=== PATIENT | female | born 1955 | race Caucasian/White ===

== ENCOUNTER 2017-11-15 06:34 | Inpatient (IN) ==
[2017-11-08 17:58] LABS: Appearance,Urine CLEAR; Bilirubin,Urine NEG (NEG); Color,Urine YELLOW; Glucose,Urine (UA) NEGATIVE (NEG); Leukocyte Esterase,Urine NEG /uL (NEG); Nitrate,Urine NEG (NEG); Protein,Urine NEG (NEG); Specific Gravity,Urine 1.015 (1.000-1.035); Urine Blood NEG mg/dL (<0.03); Urobilinogen,Urine NEG (NEG)
[2017-11-08 18:28] LABS: Blood Urea Nitrogen 19 mg/dl (8-23)
[2017-11-08 18:35] LABS: Basophils # (Auto) 0 K/mcL (0.0-0.3); Basophils % (Auto) 0.6 % (0.0-2.0); Eosinophils # (Auto) 0.1 K/mcL (0.0-0.7); Eosinophils % (Auto) 1.7 % (0.0-7.0); Lymphocytes # (Auto) 2.1 K/mcL (1.5-4.8); Lymphocytes % (Auto) 32.7 % (15.5-49.0); Mean Cell Volume 90.4 fL (80.0-100.0); Mean Corpuscular HGB Conc 34.2 g/dL (31.0-36.0); Mean Corpuscular Hemoglobin 30.9 pg (26.0-34.0); Monocytes # (Auto) 0.7 K/mcL (0.1-0.9); Platelet Count 232 K/mcL (140-440); RBC 3.78 M/mcL (4.00-5.20); Red Cell Distribution Width 14.1 % (11.5-14.5)
[~2017-11-15 06:34] MED LIST: CELECOXIB 200 MG CAPSULE PO SCH; KETOROLAC 30 MG, ROPIVACAINE HCL/PF 49.5 ML, EPINEPHrine 0.5 MG, 0.9 % SODIUM CHLORIDE ... IJ SCH; PREGABALIN 75 MG CAPSULE PO SCH; ceFAZolin 1 GM VIAL IV SCH; oxyCODONE 10 MG TAB.ER.12H PO SCH
[2017-11-15] MEDS ORDERED: DEXAMETHASONE 10 MG/ML VIAL IV ONE (09:25)
[2017-11-15] MEDS ORDERED: LIDOCAINE HCL/PF 100 MG/5 ML SYRINGE IV ONE (09:25)
[2017-11-15] MEDS ORDERED: MIDAZOLAM 5 MG/5 ML VIAL IV ONE (09:25)
[2017-11-15] MEDS ORDERED: PROPOFOL 200 MG/20 ML VIAL IV ONE (09:25)
[2017-11-15] MEDS ORDERED: ONDANSETRON 4 MG/2 ML VIAL IV ONE (09:25)
[2017-11-15] MEDS ORDERED: TRANEXAMIC ACID 1,000 MG/10 ML VIAL IV ONE ×2 (09:25→10:56)
[2017-11-15] MEDS ORDERED: BUPIVACAINE PF 0.5% 30 ML VIAL IJ ONE (09:25)
[2017-11-15] MEDS ORDERED: ACETAMINOPHEN 1,000 MG/100 ML BOTTLE IV ONE (10:07)
[2017-11-15] MEDS ORDERED: diphenhydrAMINE 50 MG/ML VIAL IV PRN (10:07)
[2017-11-15] MEDS ORDERED: LACTATED RINGERS 250 ML IV PRN (10:07)
[2017-11-15] MEDS ORDERED: PROMETHAZINE 25 MG/ML VIAL IM PRN (10:07)
[2017-11-15] MEDS ORDERED: NALOXONE HCL 0.4 MG/ML VIAL IV PRN (10:07)
[2017-11-15] MEDS ORDERED: METHOCARBAMOL 1,000 MG/10 ML VIAL IV PRN (10:07)
[2017-11-15] MEDS ORDERED: BENZOCAINE/MENTHOL 1 LOZENGE PO PRN ×2 (10:07→10:56)
[2017-11-15] MEDS ORDERED: fentaNYL 100 MCG/2 ML VIAL IV PRN (10:07)
[2017-11-15] MEDS ORDERED: PROMETHAZINE 25 MG/ML VIAL IV PRN (10:07)
[2017-11-15] MEDS ORDERED: ePHEDrine 50 MG/ML AMPUL IV PRN (10:07)
[2017-11-15] MEDS ORDERED: IPRATROPIUM/ALBUTEROL 3 ML AMPUL.NEB NEB PRN (10:07)
[2017-11-15] MEDS ORDERED: FLUMAZENIL 0.1 MG/ML ML IV PRN (10:07)
[2017-11-15] MEDS ORDERED: MEPERIDINE 50 MG/ML SYRINGE IM PRN (10:07)
[2017-11-15] MEDS ORDERED: ONDANSETRON 4 MG/2 ML VIAL IV PRN ×2 (10:07→10:56)
[2017-11-15] MEDS ORDERED: LACTATED RINGERS 1,000 ML IV SCH (10:15)
--- NOTE | 2017-11-15 10:55 | Brief Operative Note ---
Date of procedure: 11/15/17 Pre-op diagnosis: Left knee osteoarthritis Post-op diagnosis: same Procedure: Left robotic assisted total knee arthroplasty Grafts/Implants: Yes ([place] Triathlon CR 2 femur, 2 tibia, 11mm insert, 33 patella) Anesthesia: spinal, GLMA Findings: severe arthritis Complications: none Surgeon: Stuart Parham Watershed Program Manager: Tristen Oh Estimated blood loss (cc): 30 Specimens Removed/Pathology: none sent Condition: stable Disposition: PACU
[2017-11-15] MEDS ORDERED: FLEETS ADULT ENEMA PR PRN (10:56)
[2017-11-15] MEDS ORDERED: HYDROmorphone 2 MG/ML SYRINGE IV PRN (10:56)
[2017-11-15] MEDS ORDERED: MAGNESIUM HYDROXIDE 30 ML ORAL.SUSP PO PRN (10:56)
[2017-11-15] MEDS ORDERED: BISACODYL 10 MG SUPP.RECT PR PRN (10:56)
[2017-11-15] MEDS ORDERED: POLYETHYLENE GLYCOL 3350 17 GM PACKET PO PRN ×2 (10:56→11:00)
[2017-11-15] MEDS ORDERED: ACETAMINOPHEN PO PRN (11:00)
[2017-11-15] MEDS ORDERED: ASPIRIN PO PRN (11:00)
[2017-11-15] MEDS ORDERED: CAFFEINE PO PRN (11:00)
[2017-11-15] MEDS: MEPERIDINE 25 MG/ML SYRINGE IV PRN ×2 (11:45→11:50)
--- NOTE | 2017-11-15 12:41 | XRay Report ---
CLINICAL INFORMATION: Post-op total knee COMPARISON: None. FINDINGS: Total knee prostheses is anatomically aligned. No osseous abnormality. Periarticular soft tissue swelling and gas seen as expected IMPRESSION: Negative Interpreted and Authenticated by: Zachariah Vidales 11/15/17
[2017-11-15] MEDS: KETOROLAC 30 MG/ML VIAL IV SCH ×2 (13:17→18:08)
[2017-11-15] MEDS: 0.9 % SODIUM CHLORIDE 10 ML SYRINGE IV SCH ×2 (14:33→21:39)
[2017-11-15] MEDS: 0.9 % SODIUM CHLORIDE 1,000 ML IV SCH ×2 (14:34→19:20)
--- NOTE | 2017-11-15 15:02 | Discharge Summary ---
Ortho Discharge - TKA - Patient Instructions Diet: Regular Diet Activity: activity as tolerated, weight bearing as tolerated Total Knee Protocol: For Total Knee: Start ROM JERRY with stationary bike or rocking chair. Work on gaining full extension of knee. Posterior dislocation precautions provided. Hip abductor strengthening and gait training instructions provided. Apply Cryocuff as instructed. Dressing Care: May shower in 2 days, Aquacel Ag - leave on for 5 days - Follow Up Plan Follow Up Appointments: Dung Montoya PA-C [Physician Kiss Mixer] - Disposition: Home, Self-Care Prognosis: Good Rehab Potential: Good - Orders For Discharge Additional Discharge Orders: Physical Therapy at Discharge - TKA Location: Determined By Patient Toilet Riser Discharge Order Location: Determined By Patient Walker Location: Determined By Patient
[2017-11-15] MEDS: HYDROcodone/APAP 10/325MG TABLET PO PRN ×2 (16:56→21:11)
[2017-11-15] MEDS: ceFAZolin 1 GM VIAL IV SCH (16:56)
[2017-11-15] MEDS ORDERED: NORTRIPTYLINE 10 MG CAPSULE PO SCH (21:00)
[2017-11-15] MEDS ORDERED: SENNOSIDES 1 TABLET PO SCH (21:00)
[2017-11-15] MEDS: DOCUSATE SODIUM 100 MG CAPSULE PO SCH (21:11)
[2017-11-15] MEDS: ASPIRIN 325 MG ENTERIC COATED TABLET PO SCH (21:11)
[2017-11-15] MEDS: [UNRECOGNIZED DRUG - OTHER] PO SCH (21:15)
[2017-11-16] MEDS: ceFAZolin 1 GM VIAL IV SCH (00:41)
[2017-11-16] MEDS: KETOROLAC 30 MG/ML VIAL IV SCH ×2 (00:41→05:28)
[2017-11-16] MEDS: HYDROcodone/APAP 10/325MG TABLET PO PRN ×2 (02:02→08:33)
[2017-11-16] MEDS: 0.9 % SODIUM CHLORIDE 1,000 ML IV SCH (02:43)
[2017-11-16] MEDS: 0.9 % SODIUM CHLORIDE 10 ML SYRINGE IV SCH (05:28)
[2017-11-16] MEDS ORDERED: OMEPRAZOLE 20 MG CAPSULE PO SCH (07:30)
[2017-11-16] MEDS ORDERED: oxyCODONE/APAP 5/325MG TABLET PO PRN (08:49)
--- NOTE | 2017-11-16 08:51 | Operative Note ---
DATE OF OPERATION: 11/15/2017 PREOPERATIVE DIAGNOSIS: Left knee severe osteoarthritis. POSTOPERATIVE DIAGNOSIS: Left knee severe osteoarthritis. PROCEDURE PERFORMED: Left robotic-assisted total knee arthroplasty placing a Daniel Triathlon size 2 cruciate retaining femoral component, a size 2 tibial baseplate, an 11 mm X3 tibial insert with a 33 mm patellar button. SURGEON: Stuart Parham M.D. PENCIL INSPECTOR: Tristen Oh PA-C. ANESTHESIA: Spinal plus general. DRAINS: None. SPECIMENS: Bone cuts, which were discarded. BLOOD LOSS: Less than 30 mL. POSTOPERATIVE CONDITION: Stable. INDICATIONS FOR SURGERY: This is a 61-year-old female who has had longstanding worsening knee pain. Radiographs showed cisc-lp-liic osteoarthritis. Her symptoms were no longer controlled with oral anti-inflammatories and intra-articular corticosteroid injections. FINDINGS AT SURGERY: She had complete cartilage loss. Post implantation showed good overall limb alignment, stability and patellar tracking. PROCEDURE IN DETAIL: The patient had been seen preoperatively and informed consent had been obtained after discussion of risks and benefits of surgery. Risks including, but not limited to, bleeding, possibly requiring transfusion; infection, possibly requiring implant removal and prolonged IV antibiotics; injury to nerves, blood vessels, and other surrounding structures; anesthetic risks; incomplete or no resolution of symptoms; stiffness; swelling; pain; instability; clunking; DVT and pulmonary embolus risks; and the possibility of needing further revision surgery. She understood these risks and wished to proceed. Correct operative site was marked and then patient was given spinal anesthesia. She was then taken to the operating room and LMA general given. The left lower extremity was carefully prepped and draped in normal sterile fashion, and a time-out was performed verifying patient name, operative site, and plan. Esmarch was used to exsanguinate the extremity and tourniquet was inflated. A midline incision was made with a scalpel through skin and subcutaneous tissue. Hemostasis was obtained with Bovie cautery. Irrisept was irrigated and then a medial parapatellar arthrotomy made. Subperiosteal exposure was done of the anterior medial tibia and distal anterior cortex of the femur and anterior horns of the menisci were removed, as well as the ACL was transected. The retropatellar fat pad was removed. We made two stab incisions over the femur and two over the tibia and placed bicortical pins, two in each, and then connected the arrays. We then placed a femoral and tibial check point. We then did our hip center of rotation check as well as a green probe to the medial and lateral malleolus. We also did our double checks of our checkpoints with the green probe. We then used the blue probe to do our cartilage mapping. Once this was completed, we removed osteophytes and then checked our flexion and extension gaps. She was quite tight medially and quite loose laterally. We went ahead and balanced her to 17 mm on the medial side in flexion and extension. This required 2 degrees of varus in the tibia and 3 degrees of varus in the femur. We then made sure our patellar tracking looked good and then went ahead and entered this into the robot. We then used the robotic arm to make our bone cuts. We also marked after this our tibial rotation with Bovie. We then placed our tibial baseplate trial and prepared with the boss reamer and keel punch. Keeled baseplate was placed and then a curved osteotome was used to remove posterior osteophytes. Femoral trial was impacted and pinned and then peg holes drilled. A 9 insert was placed. The knee was taken into extension. Patella was measured a 21 pre-resection. A free hand resection remained 12 mm left. This sized to a 33, which was drilled and then trialed. Patella tracked well. Definitive implants were opened while Irrisept was irrigated into the joint. After a minute, we pulse lavaged. Antibiotic cement was being mixed. We then cleaned and dried the cancellous bone surface with the CO2 gun and then cemented the tibia followed by the femur. Excess cement was removed and a 9 insert trial placed. The knee was taken into extension, and the patellar button was cemented. The joint was filled with Irrisept while cement hardened, and we injected pain cocktail into the pericapsular and subcutaneous tissues. After cement had fully hardened, we did check and realize we had some hyperextension and some laxity, so we upsized to an 11 insert. This had better stability without the hyperextension, so we went ahead and opened the 11 insert. We injected the pain cocktail in the posterior capsule before impacting the definitive insert, and we also irrigated Irrisept prior to impacting it. We then pulse lavaged with saline and removed checkpoints. The pins were also removed. A #2 FiberWire interrupted mwljsr-ht-keucup were used around the superior quadrant of the patella. A #1 Vicryl inferior odwowm-bz-dkedsl were used around the inferior quadrant, running #1 Vicryl for patellar tendon and quad tendon. Final Irrisept was done and after a minute final pulse lavage, and then 2-0 Monocryl for subcutaneous and flip for skin. Xeroform and sterile dressing was applied and tourniquet was released. The patient was awakened, extubated, and transferred to recovery in stable condition. [email or web address] Job ID: [id number] Doc ID: [id number] Stuart Parham MD
[2017-11-16] MEDS ORDERED: CYANOCOBALAMIN (VITAMIN B-12) 500 MCG TABLET PO SCH (09:00)
[2017-11-16] MEDS ORDERED: ASCORBIC ACID 500 MG TABLET PO SCH (09:00)
[2017-11-16] MEDS ORDERED: VITAMIN D3 1,000 UNIT TABLET PO SCH (09:00)
[2017-11-16] MEDS ORDERED: PYRIDOXINE 100 MG TABLET PO SCH (09:00)
[2017-11-16] MEDS ORDERED: oxyCODONE HCL 5 MG TABLET PO PRN (09:06)
[2017-11-16] MEDS: DOCUSATE SODIUM 100 MG CAPSULE PO SCH (09:27)
[2017-11-16] MEDS: ASPIRIN 325 MG ENTERIC COATED TABLET PO SCH (09:28)
[2017-11-16] MEDS: [UNRECOGNIZED DRUG - OTHER] PO SCH (09:30)
== END 2017-11-16 11:15 | disposition home or self-care (01) | DRG 470 ==
LOC: MEDSUR 06:34
PROVIDERS: ADMIT Orthopaedic Surgery; ATTEND Orthopaedic Surgery

== ENCOUNTER 2019-10-22 06:09 | Inpatient (IN) ==
[2019-10-17 19:04] LABS: Appearance,Urine HAZY; Bacteria,Urine 0 /hpf (0); Bilirubin,Urine NEG (NEG); Color,Urine YELLOW; Culture Indicated,Urine YES; Glucose,Urine (UA) NEGATIVE (NEG); Ketones,Urine NEG (NEG); Leukocyte Esterase,Urine 500 /uL (NEG); Mucus,Urine FEW /hpf (0); Nitrate,Urine NEG (NEG); Protein,Urine NEG (NEG); Urine Blood NEG mg/dL (<0.03); Urine RBC 7 /hpf (0-1); Urine Squamous Epithelial Cell 0 /hpf (0-4); Urine Transitional Epi Cells < 1 /hpf (0-2); Urine WBC 167 /hpf (0-4); Urobilinogen,Urine NEG (NEG)
[2019-10-17 19:48] LABS: Basophils # (Auto) 0 K/mcL (0.0-0.3); Basophils % (Auto) 0.8 % (0.0-2.0); Eosinophils # (Auto) 0.1 K/mcL (0.0-0.7); Eosinophils % (Auto) 1.4 % (0.0-7.0); Granulocytes % (Auto) 45.4 % (38.0-78.0); Hematocrit 36.6 % (36.0-48.0); Hemoglobin 12.3 g/dL (12.0-15.0); Lymphocytes # (Auto) 1.5 K/mcL (1.5-4.8); Lymphocytes % (Auto) 36.8 % (15.5-49.0); Mean Cell Volume 94.3 fL (80.0-100.0); Mean Corpuscular HGB Conc 33.6 g/dL (31.0-36.0); Mean Platelet Volume 9.5 fL (7.4-10.4); Monocytes # (Auto) 0.6 K/mcL (0.1-0.9); Monocytes % (Auto) 15.6 % (1.0-12.0); Platelet Count 202 K/mcL (140-440); RBC 3.88 M/mcL (4.00-5.20); WBC 4.1 K/mcL (4.5-11.0)
[2019-10-17 20:14] LABS: Blood Urea Nitrogen 15 mg/dl (8-23); Calcium 9.3 mg/dl (8.6-10.4); Carbon Dioxide 26 mmol/L (22-30); Chloride 105 mmol/L (96-108); Glomerular Filtration Rate 92; Glucose 96 mg/dL (70-105)
[2019-10-17 20:31] LABS: Estimated Average Glucose(eAG) 111 mg/dL; Hemoglobin A1C 5.5 % HGB (4.0-6.0)
[~2019-10-22 06:09] MED LIST changes: +0.9 % SODIUM CHLORIDE 9 ML, KETOROLAC 30 MG, ROPIVACAINE HCL/PF 49.5 ML, EPINEPHrine 0.... IJ SCH; +IPRATROPIUM/ALBUTEROL 3 ML AMPUL.NEB NEB PRN; -KETOROLAC 30 MG, ROPIVACAINE HCL/PF 49.5 ML, EPINEPHrine 0.5 MG, 0.9 % SODIUM CHLORIDE ... IJ SCH; +SCOPOLAMINE 1 PATCH PATCH TOPICAL PRN; -ceFAZolin 1 GM VIAL IV SCH; +ceFAZolin 2 GM in DEXTROSE 5% IN WATER 50 ML IV SCH
[2019-10-22] MEDS ORDERED: SCOPOLAMINE 1 PATCH PATCH TOPICAL PRN (06:30)
[2019-10-22] MEDS ORDERED: IPRATROPIUM/ALBUTEROL 3 ML AMPUL.NEB NEB PRN ×2 (06:30→10:45)
[2019-10-22] MEDS ORDERED: ePHEDrine 50 MG/ML AMPUL IV ONE (09:30)
[2019-10-22] MEDS ORDERED: LIDOCAINE HCL/PF 100 MG/5 ML SYRINGE IV ONE (09:30)
[2019-10-22] MEDS ORDERED: TRANEXAMIC ACID 1,000 MG/10 ML VIAL IV ONE (09:30)
[2019-10-22] MEDS ORDERED: PROPOFOL 200 MG/20 ML VIAL IV ONE (09:30)
[2019-10-22] MEDS ORDERED: ROPIVACAINE HCL/PF 20 ML VIAL IJ ONE (09:30)
[2019-10-22] MEDS ORDERED: DEXAMETHASONE 10 MG/ML VIAL IV ONE (09:30)
[2019-10-22] MEDS ORDERED: ONDANSETRON 4 MG/2 ML VIAL IV ONE (09:30)
[2019-10-22] MEDS ORDERED: KETAMINE 100 MG/ML ML IV ONE (09:30)
[2019-10-22] MEDS ORDERED: NALOXONE HCL 0.4 MG/ML VIAL IV PRN (10:45)
[2019-10-22] MEDS ORDERED: fentaNYL 100 MCG/2 ML VIAL IV PRN (10:45)
[2019-10-22] MEDS ORDERED: ONDANSETRON 4 MG/2 ML VIAL IV PRN ×2 (10:45→10:54)
[2019-10-22] MEDS ORDERED: diphenhydrAMINE 50 MG/ML VIAL IV PRN (10:45)
[2019-10-22] MEDS ORDERED: LACTATED RINGERS 1,000 ML IV SCH (10:45)
[2019-10-22] MEDS ORDERED: ACETAMINOPHEN 800 MG/80 ML BOTTLE IV ONE (10:45)
[2019-10-22] MEDS ORDERED: MEPERIDINE 25 MG/ML SYRINGE IV PRN (10:45)
[2019-10-22] MEDS ORDERED: PROMETHAZINE 25 MG/ML VIAL IV PRN (10:45)
[2019-10-22] MEDS ORDERED: FLUMAZENIL 0.1 MG/ML ML IV PRN (10:45)
[2019-10-22] MEDS ORDERED: LACTATED RINGERS 250 ML IV PRN (10:45)
[2019-10-22] MEDS ORDERED: HYDROmorphone 2 MG/ML VIAL IV PRN (10:54)
[2019-10-22] MEDS ORDERED: POLYETHYLENE GLYCOL 3350 17 GM PACKET PO PRN (10:54)
[2019-10-22] MEDS ORDERED: MAGNESIUM HYDROXIDE 30 ML ORAL.SUSP PO PRN (10:54)
[2019-10-22] MEDS ORDERED: BISACODYL 10 MG SUPP.RECT PR PRN (10:54)
[2019-10-22] MEDS ORDERED: FLEETS ADULT ENEMA PR PRN (10:54)
[2019-10-22] MEDS ORDERED: BENZOCAINE/MENTHOL 1 LOZENGE PO PRN (10:54)
[2019-10-22] MEDS ORDERED: TRANEXAMIC ACID 1,000 MG/10 ML VIAL IV SCH (10:54)
--- NOTE | 2019-10-22 10:54 | Brief Operative Note ---
Date of procedure: 10/22/19 Pre-op diagnosis: Right knee DJD Post-op diagnosis: same Procedure: Right robotic assisted total knee arthroplasty Grafts/Implants: Yes (Daniel Triathlon CR 1 femur, 2 tibia, 9mm CS insert, 31 patella) Anesthesia: spinal, GLMA Findings: MFC chondral loss Complications: none Surgeon: Stuart Parham Care Transition Coordinator: Dung Montoya Estimated blood loss (cc): 30 Specimens Removed/Pathology: none sent Condition: stable Disposition: PACU
[2019-10-22] MEDS ORDERED: traMADol 50 MG TABLET PO PRN (10:56)
[2019-10-22] MEDS: 0.9 % SODIUM CHLORIDE 1,000 ML IV SCH (12:05)
[2019-10-22] MEDS: KETOROLAC 15 MG/ML VIAL IV SCH ×2 (12:05→17:34)
--- NOTE | 2019-10-22 12:15 | XRay Report ---
CLINICAL INFORMATION: Post-op total knee. COMPARISON: None. FINDINGS: Total knee prostheses is anatomically aligned. No osseous abnormality. Periarticular gas and soft tissue swelling seen as expected IMPRESSION: Negative Interpreted and Authenticated by: Zachariah Vidales 10/22/19
--- NOTE | 2019-10-22 12:23 | Operative Note ---
DATE OF OPERATION: 10/22/2019 PREOPERATIVE DIAGNOSIS: Right knee degenerative joint disease. POSTOPERATIVE DIAGNOSIS: Right knee degenerative joint disease. PROCEDURE PERFORMED: Right robotic-assisted total knee arthroplasty placing a Daniel Triathlon size 1 cruciate retaining femoral component, size 2 tibial baseplate, a 9 mm X3 cruciate substituting insert with a 31 mm patellar button. SURGEON: Stuart Parham M.D. [employer] WEB DEVELOPER: Armani Montoya PA-C. The PA's assistance was required for the safe and efficient completion of the entire case. This provider's expertise and technical skill were required throughout the case. The PA assisted with preoperative coordination, intraoperative retraction, wound closure, dressing and splint application, as well as postoperative documentation and care coordination. ANESTHESIA: Spinal plus general. DRAINS: None. SPECIMENS: Bone cuts which were discarded. BLOOD LOSS: 50 mL. COMPLICATIONS: None. POSTOPERATIVE CONDITION: Stable. INDICATIONS FOR SURGERY: This is a 63-year-old female who had right-sided knee pain. Radiographs showed some arthrosis. However, MRI showed more significant arthritis. She had had a steroid injection with only short-term relief. She had a history of a left total knee arthroplasty after an unsuccessful knee arthroscopy. FINDINGS AT SURGERY: She did have full-thickness cartilage loss off the medial femoral condyle. Post implantation showed good limb alignment, patellar tracking, and joint stability. PROCEDURE IN DETAIL: The patient had been seen preoperatively. Informed consent had been obtained after discussion of risks and benefits of surgery. Risks including, but not limited to, bleeding, possibly requiring transfusion; infection, possibly requiring implant removal and prolonged IV antibiotics; injury to nerves, blood vessels, and other surrounding structures; anesthetic risks; incomplete or no resolution of symptoms; swelling; stiffness; pain; instability; DVT and pulmonary embolus risks; and the possibility of needing further revision joint surgery. Patient understood and wished to proceed. Correct operative site was marked in preoperative holding, and patient was taken to the operating room and general anesthesia was induced. The right lower extremity was then prepped and draped in normal sterile fashion, and a timeout was performed verifying patient name, operative site, and plan. Ioban was placed over all skin surfaces and an Esmarch was used to exsanguinate the extremity, and tourniquet was inflated. A midline incision was made with a scalpel through skin and subcutaneous tissue, then IrriSept was irrigated and a medial parapatellar arthrotomy was made, and then a subperiosteal exposure was done of the anterior medial tibia. Anterior horns of the menisci were removed, as well as retropatellar fat pad. ACL was transected. We then did a resection of the patella freehand, premeasuring thickness and then placing a cut protector after. We then placed our femoral and tibial checkpoints, and then a scalpel was used to make two stab incisions over the femur and two over the tibia and bicortical pins placed. The arrays were connected. The green probe was used to identify medial and lateral malleoli and double-checks were made with the green probe of the femoral and tibial check points. Blue probe was then used to do our mapping. A rongeur was used to remove osteophytes. We then used the spoons to check our flexion-extension gaps and made adjustments to get as close to 17 mm gaps on all four numbers as possible. Once this was completed, we then used the robotic arm to make our bone cuts. The tibia was prepared with the boss reamer and keel punch and externally rotated as bone coverage would allow. A keeled tibial trial was placed, and the femur was elevated. Curved osteotome and curet were used to remove posterior osteophytes. Femoral trial was then impacted and pinned into place. This was placed flush along the lateral cortex of the femur and then peg holes were drilled. A 9 insert trial was placed and then the knee was taken into extension. We then prepared the patella medializing maximally and sized this to a 31 patella. We then checked the patellar tracking and it was stable. We then removed trial implants. Definitive implants were opened while the joint was irrigated with IrriSept. After waiting a minute, we pulse lavaged with saline. Antibiotic cement was mixed and then the cancellous bone surfaces were dried with the CO2 gun. We then cemented the tibia, followed by the femur. Excess cement was removed, and the trial insert was placed, and the knee was taken into extension. The patella was then cemented. After excess cement was removed, we filled the joint with IrriSept. The tibial and femoral check points were removed. The extension was checked and then we removed our arrays and our pins. We injected pain cocktail in the pericapsular and subcutaneous tissues. Once cement had fully hardened, we flexed the knee up. We removed the insert trial, injected pain cocktail in the posteromedial capsule. We then opened a 9 mm X3 CS insert, and this was carefully impacted and verified to be fully seated. The knee was then placed in extension and filled with IrriSept. After a minute it was copiously pulse lavaged with saline. We then flexed the knee to 45 degrees of flexion. A #2 FiberWire vjqbdo-be-cussq was used around the superior quadrant of the patella, #1 Vicryl kwypzj-vk-hnwqdp around the inferior quadrant. Running #1 Vicryl was used for patellar tendon and quad tendon. Final IrriSept irrigation was done, after a minute final pulse lavage, and then 2-0 Monocryl was used for subcutaneous and flip for skin. Xeroform and sterile dressing were applied. Tourniquet was released. The patient was awakened, extubated, and transferred to recovery in stable condition. BJB:[email or web address] Job ID: [id number] Doc ID: [id number] Stuart Parham MD
[2019-10-22] MEDS: oxyCODONE/APAP 5/325MG TABLET PO PRN ×3 (13:25→22:56)
[2019-10-22] MEDS: 0.9 % SODIUM CHLORIDE 10 ML SYRINGE IV SCH ×2 (13:26→22:00)
[2019-10-22] MEDS: ceFAZolin 1 GM VIAL IV SCH (17:35)
[2019-10-22] MEDS: ASPIRIN 81 MG TAB.CHEW PO SCH (20:41)
[2019-10-22] MEDS: DOCUSATE SODIUM 100 MG CAPSULE PO SCH (20:41)
[2019-10-22] MEDS: [UNRECOGNIZED DRUG - OTHER] PO SCH (20:43)
[2019-10-22] MEDS: FOLIC AC PO SCH (20:43)
[2019-10-22] MEDS: VIT B12 PO SCH (20:43)
[2019-10-22] MEDS ORDERED: SENNOSIDES 1 TABLET PO SCH (21:00)
[2019-10-22] MEDS ORDERED: FLUoxetine HCL 20 MG CAPSULE PO SCH (21:00)
[2019-10-23] MEDS: ceFAZolin 1 GM VIAL IV SCH (00:08)
[2019-10-23] MEDS: KETOROLAC 15 MG/ML VIAL IV SCH ×2 (00:08→06:01)
[2019-10-23] MEDS: 0.9 % SODIUM CHLORIDE 1,000 ML IV SCH (00:28)
[2019-10-23] MEDS: oxyCODONE/APAP 5/325MG TABLET PO PRN ×3 (04:18→10:25)
[2019-10-23] MEDS: 0.9 % SODIUM CHLORIDE 10 ML SYRINGE IV SCH (06:01)
--- NOTE | 2019-10-23 06:55 | Discharge Summary ---
Providers - Providers Patient information: Note initiated : 10/23/19 at 6:52 am Service Date, if different from initiated Date: [] Patient: Lia Pickens 63 y/o F admitted on 10/22/19 for Right Robotic Total Knee Arthroplasty. Chief Complaint: [] Discharge date: 10/23/19 Hospitalization Hospital Course: Pt was admitted for a R TKA. Pt admitted on the day of procedure. Pt was transferred to the floor for IV pain meds, IV abx, and PT. Pt discharged to home. Will take ASA for DVT prophylaxis. Will attend out-pt PT. Discharge diagnosis: R knee OA Exam - Exam Clean and dry: Yes Weight bearing status: as tolerated Ortho Discharge - TKA - Patient Instructions Diet: Regular Diet Activity: activity as tolerated Total Knee Protocol: For Total Knee: Start ROM JERRY with stationary bike or rocking chair. Work on gaining full extension of knee. Posterior dislocation precautions provided. Hip abductor strengthening and gait training instructions provided. Apply Cryocuff as instructed. Dressing Care: May shower in 2 days - Follow Up Plan Disposition: Home, Self-Care Prognosis: Good Rehab Potential: Good Overall status at discharge: patient is progressing back to baseline - Orders For Discharge Prescriptions: Aspirin 81 mg PO BID #30 tab.chew Transmission Status: Pending to [address] HYDROcodone/APAP 10/325MG [Anderson 10-325Mg] 1 - 2 tab PO Q4H PRN #90 tab PRN Reason: Pain Prescription Printed Pending Studies Resuscitation Status Full Code Diet Consistent Carbohydrate Diet Start MonOct 22 1055 Aspirin (Aspirin) 81 mg PO BID [facility] Last Admin: 10/22/19 20:41 Dose: 81 mg Documented by: MARCO Docusate Sodium (Colace) 100 mg PO BID [facility] Last Admin: 10/22/19 20:41 Dose: 100 mg Documented by: MARCO Fluoxetine HCl (Prozac) 40 mg PO HS [facility] Last Admin: 10/22/19 20:41 Dose: 40 mg Documented by: MARCO Sodium Chloride (Sodium Chloride 0.9%) 1,000 mls @ 75 mls/hr IV .[id number] [facility] Last Admin: 10/23/19 00:28 Dose: Not Given Documented by: Infusion: 10/23/19 00:10 Dose: 0 mls/hr Documented by: Admin: 10/22/19 12:05 Dose: 75 mls/hr Documented by: YUSRA Ketorolac Tromethamine (Toradol) 15 mg IV Q6 [facility] Stop: 10/24/19 06:01 Last Admin: 10/23/19 06:01 Dose: 15 mg Documented by: Admin: 10/23/19 00:08 Dose: 15 mg Documented by: Admin: 10/22/19 17:34 Dose: 15 mg Documented by: Admin: 10/22/19 12:05 Dose: 15 mg Documented by: YUSRA Oxycodone/Acetaminophen (Percocet 5-325 Mg) 0 tab PO Q4HP PRN PRN Reason: PAIN LEVEL 3-6 Last Admin: 10/23/19 04:18 Dose: 1 tab Documented by: Admin: 10/22/19 22:56 Dose: 2 tab Documented by: Admin: 10/22/19 18:29 Dose: 2 tab Documented by: Admin: 10/22/19 13:25 Dose: 2 tab Documented by: YUSRA Iron Chelate/Vit B12 /Folic Ac [Ferractiv Iron 27 Capsule] 1 dose PO BID [facility] Last Admin: 10/22/19 20:43 Dose: Not Given Documented by: MARCO Potassium 99 Mg (Tablet) 1 dose PO BID [facility] Last Admin: 10/22/19 20:43 Dose: Not Given Documented by: MARCO Senna (Senokot) 2 tab PO HS [facility] Last Admin: 10/22/19 20:41 Dose: 2 tab Documented by: MARCO Sodium Chloride (Saline Flush) 10 ml IV Q8 [facility] Last Admin: 10/23/19 06:01 Dose: 10 ml Documented by: Admin: 10/22/19 22:00 Dose: Not Given Documented by: Admin: 10/22/19 13:26 Dose: Not Given Documented by: YUSRA Shift Summary 10/23/19 02:16 (created 10/23/19 01:56) Shift Summary by Keisha Kruse Addendum entered by Keisha Kruse RLynnette 10/23/19 04:23: BP running a little low. BP at 0417 was 100/63. Original Note: Pt is A&Ox4. VSS on RA. Up to BR w/SBA, FWW, & GB. Ambulated in hallway x1. Voiding well. Dressing to right knee CDI. C/O some numbness to right fourth & fifth toes. No nausea. IV to LFA, SL. Pt received Percocet 5 mg (2 tabs) x2 and scheduled Toradol for knee pain. Also c/o headache at times (has them quite often & is reportedly supposed to start a new med for this tomorrow). Will update with verbal report. Initialized on 10/23/19 01:56 - END OF NOTE
[2019-10-23] MEDS ORDERED: OMEPRAZOLE 20 MG CAPSULE PO SCH (07:30)
[2019-10-23] MEDS ORDERED: PYRIDOXINE 100 MG TABLET PO SCH (09:00)
[2019-10-23] MEDS ORDERED: BIOTIN 5000 MCG PO SCH (09:00)
[2019-10-23] MEDS ORDERED: ASCORBIC ACID 500 MG TABLET PO SCH (09:00)
[2019-10-23] MEDS ORDERED: VITAMIN E (DL,TOCOPHERYL ACET) 400 UNIT CAPSULE PO SCH (09:00)
[2019-10-23] MEDS ORDERED: VITAMIN A 2400 UNIT PO SCH (09:00)
[2019-10-23] MEDS ORDERED: CYANOCOBALAMIN (VITAMIN B-12) 500 MCG TABLET PO SCH (09:00)
[2019-10-23] MEDS ORDERED: MAGNESIUM OXIDE 400 MG TABLET PO SCH (09:00)
[2019-10-23] MEDS ORDERED: VITAMIN D3 1,000 UNIT TABLET PO SCH (09:00)
[2019-10-23] MEDS ORDERED: CALCIUM (OYSTER SHELL) 500 MG TABLET PO SCH (09:00)
[2019-10-23] MEDS: FOLIC AC PO SCH (09:14)
[2019-10-23] MEDS: VIT B12 PO SCH (09:14)
[2019-10-23] MEDS: DOCUSATE SODIUM 100 MG CAPSULE PO SCH (09:14)
[2019-10-23] MEDS: [UNRECOGNIZED DRUG - OTHER] PO SCH (09:14)
[2019-10-23] MEDS: ASPIRIN 81 MG TAB.CHEW PO SCH (09:14)
[2019-10-23] MEDS ORDERED: PNEUMOCOCCAL 23-VAL P-SAC VAC 0.5 ML SYRINGE IM ONE (10:00)
[2019-10-23] MEDS ORDERED: FLU VACC QS2019-20(6MOS UP)/PF 60 MCG/0.5 ML SYRINGE IM ONE (10:15)
== END 2019-10-23 11:00 | disposition home or self-care (01) | DRG 470 ==
LOC: MEDSUR 06:09
PROVIDERS: ADMIT Orthopaedic Surgery; ATTEND Orthopaedic Surgery